=== PATIENT | female | born 1965 | race Caucasian/White ===

== ENCOUNTER 2021-12-21 16:06 | Emergency (ER) | payer MEDICAID ==
[~2021-12-21] VITALS: Ht 160 cm; Wt 77.3 kg
[2021-12-21 19:31] LABS: BASOPHILS % (AUTO) 0.8 % (0.0-2.0); EOSINOPHILS % (AUTO) 0.5 % (1.0-6.0); LYMPHOCYTES # (AUTO) 1.4 K/uL (1.0-4.8); LYMPHOCYTES % (AUTO) 21.1 % (22.0-44.0); MEAN CORPUSCULAR HEMOGLOBIN 14.2 pg (26.0-34.0); MEAN CORPUSCULAR HGB CONC 27.3 G/dL (31.0-37.0); MEAN CORPUSCULAR VOLUME 52 fL (80-100); MONOCYTES # (AUTO) 0.5 K/uL (0.1-1.0); MONOCYTES % (AUTO) 7.7 % (2.0-9.0); NEUTROPHILS # (AUTO) 4.7 K/uL (1.8-7.7); NEUTROPHILS % (AUTO) 69.9 % (40.0-70.0); PLATELET COUNT (AUTO) 416 K/uL (150-450); RED BLOOD CELL COUNT(AUTO) 2.65 MIL/uL (4.00-5.20); RED CELL DISTRIBUTION WIDTH 22.4 % (11.5-14.5)
[2021-12-21 19:37] LABS: HEMATOCRIT 13.8 % (36-46); HEMOGLOBIN 3.8 g/dL (12.0-16.0)
[2021-12-21 19:39] LABS: ANION GAP 9 mmol/L (8-16); CALCIUM, TOTAL 9.2 mg/dL (8.8-10.5); CARBON DIOXIDE 24 mmol/L (22-29); CHLORIDE 104 mmol/L (98-107); CREATININE 0.74 mg/dL (0.60-1.30); GLUCOSE,RANDOM 117 mg/dL (70-110); POTASSIUM 3.6 mmol/L (3.5-5.1); SODIUM SERUM 137 mmol/L (136-145); UREA NITROGEN, BLOOD 26 mg/dL (7-18)
[2021-12-21 19:40] LABS: GLOMERULAR FILTR. RATE CALC > 60 mL/min (>60)
[2021-12-21 19:52] LABS: ALANINE AMINOTRANSFERASE 18 U/L (12-78); ALBUMIN 3.5 g/dL (3.4-5.0); ALKALINE PHOSPHATASE 65 U/L (46-116); ASPARTATE AMINOTRANSFERASE 13 U/L (15-37); BILIRUBIN,TOTAL 0.5 mg/dL (0.1-1.0); HCG,QUANTITATIVE 2 mIU/mL (0-6); TOTAL PROTEIN, SERUM 7.7 g/dL (6.4-8.2)
[2021-12-21 19:54] LABS: PLATELET MORPHOLOGY COMMENT GIANT PLTS PRESENT
[2021-12-21 19:56] LABS: PATHOLOGY REVIEW, DIFF YES
[2021-12-21 20:52] LABS: COVID AG,FIA SOURCE NASOPHARYNGEAL
[2021-12-21 21:05] LABS: BASOPHILS % (AUTO) 0.6 % (0.0-2.0); EOSINOPHILS % (AUTO) 0.6 % (1.0-6.0); LYMPHOCYTES # (AUTO) 2.8 K/uL (1.0-4.8); LYMPHOCYTES % (AUTO) 33.8 % (22.0-44.0); MEAN CORPUSCULAR HGB CONC 27.1 G/dL (31.0-37.0); MEAN CORPUSCULAR VOLUME 52 fL (80-100); MONOCYTES # (AUTO) 0.7 K/uL (0.1-1.0); NEUTROPHILS # (AUTO) 4.7 K/uL (1.8-7.7); PLATELET COUNT (AUTO) 426 K/uL (150-450); RED BLOOD CELL COUNT(AUTO) 2.68 MIL/uL (4.00-5.20); RED CELL DISTRIBUTION WIDTH 22.5 % (11.5-14.5)
[2021-12-21 21:08] LABS: HEMATOCRIT 13.9 % (36-46); HEMOGLOBIN 3.8 g/dL (12.0-16.0)
[2021-12-21 21:18] LABS: PROTHROMBIN TIME 10.3 SEC (9.4-11.6)
[2021-12-21 21:20] LABS: PLATELET MORPHOLOGY COMMENT GIANT PLTS PRESENT
[2021-12-21 22:55] VITALS: BP 131/63
[2021-12-21 23:10] VITALS: BP 113/54
[2021-12-21 23:25] VITALS: BP 108/88
[2021-12-21 23:55] VITALS: BP 111/54
[2021-12-22] VITALS (18 sets, daily range): BP systolic 103–122; BP diastolic 43–77
[2021-12-23 12:26] LABS: PATHOLOGY REVIEW, DIFF YES
== END 2021-12-22 08:11 | disposition short-term general hospital (02) ==
LOC: EMS 16:26
DX: N93.8 Other specified abnormal uterine and vaginal bleeding (principal); D64.9 Anemia, unspecified; Z86.32 Personal history of gestational diabetes; Z98.890 Other specified postprocedural states; Z20.822 Contact with and (suspected) exposure to COVID-19
CPT/HCPCS: 99291; 87426; 80053; 84702; 85025; 85610; 85730; 86850; 86900; 86901; 86923; 76817; 93005; 36415; P9016